=== PATIENT | male | born 1950 | race Caucasian/White ===

== ENCOUNTER 2017-06-08 17:28 | Emergency (ER) | payer MEDICARE, OTHER ==
[~2017-06-08] VITALS: Ht 180.3 cm; Wt 125.0 kg
[2017-06-08 17:29] VITALS: BP 155/93
[2017-06-08] MEDS ORDERED: LISI2.5T PO (17:43)
== END 2017-06-08 17:55 | disposition home or self-care (01) ==
LOC: ED 17:45
DX: J00 Acute nasopharyngitis [common cold] (principal); I10 Essential (primary) hypertension
CPT/HCPCS: 99283

== ENCOUNTER 2019-06-06 13:17 | Emergency (ER) | payer MEDICARE ==
[~2019-06-06] VITALS: Ht 180.3 cm; Wt 133.3 kg
[~2019-06-06 13:17] MED LIST: LISI2.5T PO
[2019-06-06 13:22] VITALS: BP 143/80
--- NOTE | 2019-06-06 14:47 | NUR ---
URINE COLLECTED AND SENT TO LAB.
[2019-06-06 14:54] LABS: MICROSCOPIC NOT IND
--- NOTE | 2019-06-06 15:15 | NUR ---
Patient given discharge instructions and they have confirmed that they understand the instructions. Patient ambulatory with steady gait.
== END 2019-06-06 15:18 | disposition home or self-care (01) ==
LOC: ED 15:10
DX: I10 Essential (primary) hypertension (principal); M10.9 Gout, unspecified; R35.0 Frequency of micturition; Z87.430 Personal history of prostatic dysplasia; Z76.0 Encounter for issue of repeat prescription
CPT/HCPCS: 81003; 99283